=== PATIENT | female | born 1945 | race Caucasian/White ===

== ENCOUNTER 2017-11-14 16:06 | Observation (INO) | payer MEDICARE ==
[~2017-11-14] VITALS: Ht 165.1 cm; Wt 105.7 kg
[~2017-11-14 16:06] MED LIST: ATEN25TA PO; FOLI0.8T PO; HYDR-4064 PO; HYDR-4154 PO; LEVO75TA10 PO; OMEP40CA37 PO; PRAV40TA PO; ROPI0.5T5 PO; TRAZ-185 PO; iron PO
[2017-11-14 16:50] VITALS: BP 148/44
[2017-11-14] MEDS ORDERED: SODIUM CHLORIDE 0.9% 1000ML 1,000 ML IV SCH (17:15)
[2017-11-14] MEDS ORDERED: FUROSEMIDE 10 MG/ML 2ML VIAL IVP SCH (18:00)
[2017-11-14] MEDS ORDERED: MULT-1311 PO (18:59)
[2017-11-14 19:20] VITALS: BP 144/61
[2017-11-15 00:30] VITALS: BP 142/66
[2017-11-15] MEDS ORDERED: FUROSEMIDE 10 MG/ML 2ML VIAL ONE (01:18)
[2017-11-15 04:35] VITALS: BP 153/67
[2017-11-15 07:04] LABS: HEMATOCRIT 22.2 % (36-48)
[2017-11-15 07:58] VITALS: BP 168/72
[2017-11-15 11:56] VITALS: BP 158/64
[2017-11-15 16:41] VITALS: BP 178/73
[2017-11-15 16:46] LABS: HEMATOCRIT 26.9 % (36-48)
== END 2017-11-15 16:37 | disposition home or self-care (01) ==
LOC: EDH 16:06 → EDHIP 16:37 → INTOOBSV 16:37 → 3BH 16:47
PROVIDERS: ADMIT Internal Medicine Hematology & Oncology; ATTEND Internal Medicine Hematology & Oncology
DX: D46.9 Myelodysplastic syndrome, unspecified (principal); C50.919 Malignant neoplasm of unspecified site of unspecified female breast; D61.818 Other pancytopenia; E78.5 Hyperlipidemia, unspecified; I10 Essential (primary) hypertension; Z85.3 Personal history of malignant neoplasm of breast; Z87.442 Personal history of urinary calculi; Z23 Encounter for immunization
CPT/HCPCS: 36415 ×2; 36430 ×2; 85014 ×2; 85018 ×2; 86850; 86900; 86901; 86922 ×4; G0008; G0378 ×24; J1940; P9016 ×4; Q2038

== ENCOUNTER 2017-12-30 15:25 | Observation (INO) | payer MEDICARE ==
[~2017-12-30] VITALS: Ht 165.1 cm; Wt 100.2 kg
[~2017-12-30 15:25] MED LIST changes: -HYDR-4064 PO; +MULT-1311 PO
[2017-12-30] MEDS ORDERED: SODIUM CHLORIDE 0.9% 1000ML 1,000 ML IV SCH (19:00)
[2017-12-30 22:30] VITALS: BP 140/54
[2017-12-30] MEDS: FUROSEMIDE 10 MG/ML 2ML VIAL IVP SCH (23:04)
[2017-12-31] VITALS: BP 130/58
[2017-12-31] MEDS ORDERED: FUROSEMIDE 10 MG/ML 2ML VIAL ONE (02:27)
[2017-12-31] MEDS: FUROSEMIDE 10 MG/ML 2ML VIAL IVP SCH (02:36)
[2017-12-31 04:00] VITALS: BP 141/82
[2017-12-31 07:57] LABS: HEMATOCRIT 28.9 % (36-48)
[2017-12-31 08:00] VITALS: BP 142/63
[2017-12-31 11:00] VITALS: BP 133/63
[2017-12-31 16:00] VITALS: BP 125/65
== END 2017-12-31 17:24 | disposition home or self-care (01) ==
LOC: EDH 15:25 → EDHIP 15:58 → 3CH 20:25
PROVIDERS: ADMIT Internal Medicine Hematology & Oncology; ATTEND Internal Medicine Hematology & Oncology
DX: D46.9 Myelodysplastic syndrome, unspecified (principal); D61.818 Other pancytopenia; E03.9 Hypothyroidism, unspecified; E78.00 Pure hypercholesterolemia, unspecified; I13.0 Hypertensive heart and chronic kidney disease with heart failure and stage 1 through stage 4 chronic kidney disease, or unspecified chronic kidney disease; I50.9 Heart failure, unspecified; N18.3 Chronic kidney disease, stage 3 (moderate); K21.9 Gastro-esophageal reflux disease without esophagitis; Z85.3 Personal history of malignant neoplasm of breast; Z87.442 Personal history of urinary calculi; Z90.710 Acquired absence of both cervix and uterus
CPT/HCPCS: 36415 ×2; 36430 ×2; 85014; 85018; 86850; 86900; 86901; 86922; 96374; 96376; 99285; G0378 ×25; J1940 ×2; J7030; P9016 ×3